=== PATIENT | female | born 1990 | race African-American/Black ===

== ENCOUNTER 2016-06-02 23:54 | Emergency (ER) | payer MEDICAID ==
[~2016-06-02 23:54] MED LIST: ONDA4TAB7 SL; ZOFR4TAB PO
--- NOTE | 2016-06-03 00:57 | PD ---
HPI Chief Complaint Lower abdominal and back pain/vaginal discharge. Date Seen: Jun 03, 2016 Travel History International Travel<30 Days: No Contact w/Intl Traveler<30Days: No Known Affected Area: No History of Present Illness HPI at 23w 0d presents with c/o lower abdominal pain and back pain for several days. Denies contractions/VB/LOF. Reports vaginal discharge- white. Reports recent treatment for BV, just completed antibiotics. Denies urinary symptoms. Para: 4 : 6 History Past Medical History Medical History: Denies Significant Hx Obstetric History Obstetric History 3 PT /1 FT Family History Family History: Negative Social History Alcohol Use: No Tobacco Use: No Substance Abuse: No Allergies-Medications (Allergen,Severity, Reaction): Coded Allergies: Onion (Verified Allergy, Severe, 02/25/16) Spinach (Verified Allergy, Severe, 02/25/16) Home Meds Active Scripts Ondansetron (Zofran)4 Mg Tab4 Mg PO Q6HR PRN (NAUSEA OR VOMITING) #20 TAB Ref 0 Prov:Moreno Bae MD 02/26/16 Reported Medications Ondansetron Odt 4 Mg Tab4 Mg SL Q6HR PRN (Nausea/Vomiting) Ref 0 02/25/16 Physical Exam Narrative GENERAL: Well-nourished, well-developed patient. SKIN: Warm and dry. HEAD: Normocephalic and atraumatic. EYES: No scleral icterus. No injection or drainage. ENT: No nasal drainage noted. Mucous membranes pink. Airway patent. NECK: Supple, trachea midline. No JVD. CARDIOVASCULAR: Regular rate and rhythm without murmurs, gallops, or rubs. RESPIRATORY: Breath sounds equal bilaterally. No accessory muscle use. BREASTS: Bilateral exam showed no masses , no retractions, no nipple discharge. ABDOMEN/GI: Abdomen soft, non-tender, bowel sounds present, no rebound, no guarding Gravid to [-] weeks size Fundal Height: [-] GENITOURINARY: External Genitalia: intact and normal in appearance- vault with scant white discharge, wet prep done BUS glands: [-] Cervix: [-] Dilatation: [0] Effacement: [0] Station: [3] Presentation: [-] Membranes: [intact or ruptured] Uterine Contractions: [-] FHT's: Category: [reassuring for gestational age] Baseline: [130s] Reactive: [-] Variability: [moderate] Decels: [-] EXTREMITIES: No cyanosis or edema. BACK: Nontender without obvious deformity. No CVA tenderness. NEUROLOGICAL: Awake and alert. Motor and sensory grossly within normal limits. Five out of 5 muscle strength in all muscle groups. Normal speech. Data Data Vital Signs Reviewed: Yes Orders Urinalysis - C+S If Indicated (06/03/16 00:48) Wet Prep Profile (06/03/16 00:48) Labs UA- large LE, wet prep- clue cells MDM Interpretation(s) at 23w 0d with abdominal pain/vaginal discharge Plan Will send UA. Wet prep obtained. Rx for Flagyl 500mg bid for 7days. Keep f/u with OB provider as scheduled for this week. All questions answered. Diagnosis Diagnosis: Primary Impression: 23 weeks gestation of Additional Impressions: Abdominal pain during in second trimester Vaginal discharge during in second trimester Bacterial vaginosis Disposition: 01 DISCHARGE HOME Condition: Stable Scripts Metronidazole (Flagyl)500 Mg [id number] Mg PO BID 7 Days Ref 0 Prov:Lexi Ennis MD 06/03/16 Lexi Ennis MD Jun 03, 2016 00:57
[2016-06-03 01:10] LABS: BACTERIA, URINE RARE /hpf; BLOOD, URINE NEG (NEG); GLUCOSE,URINE NEG (NEG); KETONE, URINE NEG (NEG); MUCUS URINE FEW /lpf (OCC); NITRITE,URINE NEG (NEG); PH, URINE 6.5 (5.0-8.5); SQUAMOUS EPITHELIAL CELL URINE <1 /hpf (0-5); URINE COLOR YELLOW (YELLW/STRAW)
[2016-06-03 01:12] LABS: COMMENT (UR) CULT NOT INDICATED; CULTURE IF INDICATED CULT NOT INDICATED
[2016-06-03] MEDS ORDERED: METR-1 PO (01:20)
== END 2016-06-03 01:38 | disposition home or self-care (01) ==
LOC: HOBED 23:54
DX: R10.30 Lower abdominal pain, unspecified (principal); M54.9 Dorsalgia, unspecified; N89.8 Other specified noninflammatory disorders of vagina; O23.592 Infection of other part of genital tract in pregnancy, second trimester; N76.0 Acute vaginitis; B96.89 Other specified bacterial agents as the cause of diseases classified elsewhere; Z3A.23 23 weeks gestation of pregnancy
CPT/HCPCS: 81001; 87210; 99284

== ENCOUNTER 2016-08-04 11:47 | Emergency (ER) | payer MEDICAID ==
[~2016-08-04 11:47] MED LIST changes: +METR-1 PO
[2016-08-04 11:52] VITALS: BP 117/64; PULSE 69; RESP 20; TEMP 98.1; O2SAT 100
--- NOTE | 2016-08-04 12:55 | PD ---
HPI Chief Complaint Abdominal Pain Date Seen: Aug 04, 2016 Travel History International Travel<30 Days: No Contact w/Intl Traveler<30Days: No Known Affected Area: No History of Present Illness HPI Patient is a 26-year-old 115 at 32 weeks gestation that presents to the [facility] be ED with a chief complaints of abdominal pain that has lasted the duration of her . Patient gets her care with an [employer] provider in [place] will give her a prescription for ultrasound and send her here. Patient denies vaginal bleeding or loss of fluid but states that she lost her mucous plug 3 days ago. She had bacterial vaginosis during this and is currently dealing with a yeast infection for which she was given 1 tablet of fluconazole today after failing treatments with a vaginal suppository. Patient states that all her labs have been normal. She has not done the glucose testing yet. Additional symptoms include nausea with vomiting, headache, lightheadedness, chest pain, shortness of breath, dysuria. She denies fever or chills. Last sexual intercourse was months ago. Para: 4 : 7 Miscarriage: 1 : 0 History Past Medical History Medical History: Denies Significant Hx Obstetric History Obstetric History 115 -First was a miscarriage at 2 weeks -Second and third pregnancies were full-term at 39 and 37 weeks respectively -Fourth was late at 34 weeks -Fifth was premature at 33 weeks, PPROM. Baby weighed 4 pounds and 8 ounces Past Surgical History Surgical History: No Previous Surgery Family History Narrative Family History Hypertension in mom's side of the family Social History Alcohol Use: No Tobacco Use: No Substance Abuse: Yes (marijuana - last use was 2 days ago) Allergies-Medications (Allergen,Severity, Reaction): Coded Allergies: Onion (Verified Allergy, Severe, 02/25/16) Spinach (Verified Allergy, Severe, 02/25/16) Home Meds Active Scripts Metronidazole (Flagyl)500 Mg [id number] Mg PO BID 7 Days Ref 0 Prov:Lexi Ennis MD 06/03/16 Ondansetron (Zofran)4 Mg Tab4 Mg PO Q6HR PRN (NAUSEA OR VOMITING) #20 TAB Ref 0 Prov:Moreno Bae MD 02/26/16 Reported Medications Ondansetron Odt 4 Mg Tab4 Mg SL Q6HR PRN (Nausea/Vomiting) Ref 0 02/25/16 Review of Systems General / Constitutional: No: Fever, Chills HENT: Headaches, Lightheadedness Cardiovascular: Chest Pain or Discomfort Respiratory: Short of Breath Gastrointestinal: Nausea, Vomiting, Abdominal Pain Genitourinary: Dysuria Physical Exam Vital Signs Date Time Temp Pulse Resp B/P Pulse Ox O2 Delivery O2 Flow Rate FiO2 08/04/16 11:52 98.1 69 20 117/64 100 Room Air Narrative GENERAL: Well-nourished, well-developed patient. SKIN: Warm and dry. HEAD: Normocephalic and atraumatic. EYES: No scleral icterus. No injection or drainage. ENT: No nasal drainage noted. Mucous membranes pink. Airway patent. NECK: Supple, trachea midline. No JVD. CARDIOVASCULAR: Regular rate and rhythm without murmurs, gallops, or rubs. RESPIRATORY: Breath sounds equal bilaterally. No accessory muscle use. ABDOMEN/GI: Abdomen soft, tender to palpation with guarding, bowel sounds present Gravid to 32 weeks size GENITOURINARY: External Genitalia: intact and normal in appearance Cervix: High and posterior Dilatation: Closed Effacement: 0% Station: -3 Presentation: [-] Membranes: Intact Uterine Contractions: None FHT's: Category: 1 Baseline: 135 Reactive: yes up to 140 Variability: moderate Decels: None EXTREMITIES: No cyanosis or edema. BACK: Nontender without obvious deformity. No CVA tenderness. NEUROLOGICAL: Awake and alert. Motor and sensory grossly within normal limits. Five out of 5 muscle strength in all muscle groups. Normal speech. Data Data Vital Signs Reviewed: Yes Orders Vital Signs (Adult) .ON ADMISSION (08/04/16 12:30) ^ Labor Status (08/04/16 12:30) Urinalysis - C+S If Indicated (08/04/16 12:30) Diet Liquid (08/04/16 Lunch) Fibronectin (08/04/16 12:30) MDM Interpretation(s) 26-year-old 115 presents with abdominal pain. Plan Intrauterine - tracing category 1, reassuring -No contractions on tocometer after monitoring for over 1 hour -Cervical exam: Cervix closed, high and posterior. -Urinalysis - not indicative of infection - fibronectin - negative -Will give a shot of demerol and will ask pt to ask her OB provider to schedule her for ultrasound on Tuesday with MFM consult if available. Diagnosis Diagnosis: Primary Impression: Abdominal pain affecting , antepartum Disposition: DISCHARGE HOME Condition: Stable Eko,Isa Connors MD R1 Aug 04, 2016 12:55
[2016-08-04 12:59] LABS: BLOOD, URINE NEG (NEG); COMMENT (UR) CULT NOT INDICATED; CULTURE IF INDICATED CULT NOT INDICATED; GLUCOSE,URINE NEG (NEG); KETONE, URINE 10 mg/dL (NEG); MUCUS URINE FEW /lpf (OCC); NITRITE,URINE NEG (NEG); SQUAMOUS EPITHELIAL CELL URINE 1 /hpf (0-5); URINE COLOR YELLOW (YELLW/STRAW)
--- NOTE | 2016-08-04 13:55 | PD ---
History of Present Illness Date Seen: Aug 04, 2016 Time Seen: 13:30 History of Present Illness This patient is a 26-year-old black female at 32 weeks tomorrow presents as a referral from her OB doctor in [place] for evaluation of her pain. Patient said pain throughout but it seems to be worsening In the last day or so. Has known yeast infection is been treated for bacterial vaginosis in the past. Her history significant for her last delivery being delivered 33 weeks. heart rates reactive she has no contractions on the monitor. fibronectin done was negative urinalysis negative, cervix is closed and high. Patient's took 1 Diflucan for her yeast infection already she was monitored for over an hours and no contractions and the heart rate tracing is reactive. On exam she has slight tenderness to palpation the abdomen , size equal dates. The patient came in with a prescription from her OB doctor to get an ultrasound done however there is no indication to do an ultrasound at this point this patient pain alone is not that good and indication, however certainly can be scheduled and done for this patient if her ob office will call and set that up in the usual fashion usually on tuesday when maternal medicines here to evaluate and or treat. patient offered im pain shot for relief and if she decides she wants that will be given otherwise she is use tylenol 2 every 4 hours increase her fluid intake and use a heating pad where she hurts on low or so, hot bath and follow up with her ob provider. Jewel Villela II, MD Aug 04, 2016 13:55
[2016-08-04] MEDS ORDERED: MEPERIDINE HCL 50 MG/ML VIAL IM ONE (14:00)
[2016-08-04] MEDS ORDERED: PROCHLORPERAZINE INJ 10 MG/2 ML VIAL IM ONE (14:00)
== END 2016-08-04 15:27 | disposition home or self-care (01) ==
LOC: HOBED 11:47
DX: R10.9 Unspecified abdominal pain (principal); Z3A.32 32 weeks gestation of pregnancy; O26.893 Other specified pregnancy related conditions, third trimester; F12.90 Cannabis use, unspecified, uncomplicated
CPT/HCPCS: 81001; 82731; 96372; 99284; J0780; J2175

== ENCOUNTER 2016-08-11 14:00 | Emergency (ER) | payer MEDICAID ==
[~2016-08-11] VITALS: Ht 157.5 cm; Wt 70.5 kg
[2016-08-11 14:02] VITALS: BP 113/55; PULSE 100; RESP 20; TEMP 98.6; O2SAT 100
--- NOTE | 2016-08-11 15:03 | PD ---
Physical Exam Date Seen by Provider: Aug 11, 2016 Time Seen by Provider: 14:59 Narrative Pt is a 24 year old female presenting with 3 days of SOB, nasal congestion, cough, vomiting. Pt has not taken temp. she reports feeling hot. Pt is 33 weeks . Pt's OB is Dr. Antoine Hurley. Pt reports pleuritic pain. Pt denies any significant PMHx. VSS. Data Data Last Documented VS Vital Signs Date Time Temp Pulse Resp B/P Pulse Ox O2 Delivery O2 Flow Rate FiO2 08/11/16 14:02 98.6 100 20 113/55 100 Room Air MDM Supervised Visit with KAMALA: Frances Staton Aug 11, 2016 15:02
--- NOTE | 2016-08-11 16:03 | PD ---
HPI Chief Complaint: respiratory infection Time Seen by Provider: 15:41 Travel History International Travel<30 days: No Contact w/Intl Traveler<30days: No Traveled to known affect area: No History of Present Illness HPI The patient was seen and examined in the presence of the nurse. This patient is 33 weeks and complaining of runny nose and congestion and sore throat and cough. Severity is moderate. Duration 3 days. No alleviating factors. She denies fever. PFSH Past Medical History Anxiety: No Depression: Yes (Was treated in past with medication) Cancer: No Cardiovascular Problems: No Diabetes: No Diminished Hearing: No Endocrine: No Genitourinary: No Immune Disorder: No Musculoskeletal: No Neurologic: No Psychiatric: Yes (PT-DEPRESSION) Respiratory: Yes (HX BRONCHITIS) Seizures: No Thyroid Disease: No Ulcer: No Tetanus Vaccination: > 5 Years Influenza Vaccination: Yes ?: LMP: SEPTEMBER 24 2016 DUE DATE. 33+5 [id number] Menopausal: No : 6 Para: 5 Miscarriage: 1 Ovarian Cysts: Yes Past Surgical History Other Surgery: No Social History Alcohol Use: No Tobacco Use: No Substance Use: Yes (marijuana, denies other drugs.) Allergies-Medications (Allergen,Severity, Reaction): Coded Allergies: Onion (Verified Allergy, Severe, rash, 08/11/16) Spinach (Verified Allergy, Severe, swelling, 08/11/16) Reported Meds & Prescriptions Reported Meds & Active Scripts Active Active Prescriptions or Reported Medications Unobtainable Review of Systems General / Constitutional: No: Fever Eyes: No: Drainage HENT: Positive: Rhinorrhea, Congestion Respiratory: Positive: Cough Physical Exam Narrative RESPIRATORY: Respiratory effort unlabored, no retractions or use of accessory muscles. Breath sounds are clear and symmetric. NECK: Symmetrical appearance, midline trachea. No mass or crepitus. Thyroid without enlargement, tenderness, or mass. SKIN: Focused skin assessment reveals no rash or ulcers. Skin is warm and dry. Palpation shows no induration or nodules. Throat clear GASTROINTESTINAL: Abdomen soft, non-tender, nondistended. Positive bowel sounds. No hepato-splenomegaly, or palpable masses. No guarding. Gravid uterus is nontender Data Data Last Documented VS Vital Signs Date Time Temp Pulse Resp B/P Pulse Ox O2 Delivery O2 Flow Rate FiO2 08/11/16 15:51 18 99 08/11/16 14:02 98.6 100 113/55 Room Air MDM Medical Decision Making Medical Screen Exam Complete: Yes Emergency Medical Condition: Yes Medical Record Reviewed: Yes Differential Diagnosis Flu syndrome, URI, bronchitis Narrative Course I have reviewed the patient's electronic medical record. Presentation is most consistent with acute viral flu-type syndrome. I don't suspect bacterial cause. I see no indication for antibiotics We discussed chest x-ray but I feel not worth the radiation. She is clear lungs with good oxygen saturations. She should follow-up with her physician, supportive care is discussed. Diagnosis Primary Impression: Acute bronchitis, viral Additional Instructions: The patient was advised to follow up with their physician and return if they worsen. Med/Other Pt SpecificInfo: Other Scripts Unable to Obtain Active Prescriptions or Reported Meds Disposition: 01 DISCHARGE HOME Condition: Stable Pacheco Castillo MD Aug 11, 2016 16:03
[2016-08-11 16:17] VITALS: BP 120/76; TEMP 98
== END 2016-08-11 16:20 | disposition home or self-care (01) ==
LOC: NEPD 14:00
DX: O99.513 Diseases of the respiratory system complicating pregnancy, third trimester (principal); J20.9 Acute bronchitis, unspecified; Z3A.33 33 weeks gestation of pregnancy
CPT/HCPCS: 99283

== ENCOUNTER 2016-10-09 09:33 | Inpatient (IN) | payer MEDICAID ==
[2016-10-09] VITALS (121 sets, daily range): BP systolic 120–165; BP diastolic 69–100; PULSE 45–74; RESP 12–18; TEMP 97.7–98.4; O2SAT 94–100
[2016-10-09] MEDS ORDERED: LACTATED RINGER'S 1000 ML INJ 1,000 ML IV SCH (10:12)
[2016-10-09] MEDS ORDERED: CALCIUM GLUCONATE 10% 1 GM/10 ML VIAL IV PUSH PRN ×2 (10:15→10:30)
[2016-10-09] MEDS ORDERED: ONDANSETRON ODT 4 MG TAB PO PRN (10:15)
[2016-10-09] MEDS ORDERED: MAGNESIUM SULFATE 4 GM PREMIX 100 ML IV ONE (10:15)
[2016-10-09] MEDS ORDERED: SODIUM CHLORIDE 0.9% FLUSH 10 ML FLUSH IV FLUSH PRN (10:15)
[2016-10-09] MEDS ORDERED: oxyCODONE/ACETAMINOPHEN 5 MG/325 MG TAB PO PRN (10:15)
--- NOTE | 2016-10-09 10:27 | PD ---
HPI Chief Complaint Headache and high blood pressure Date Seen: Oct 09, 2016 Time Seen: 10:19 Travel History International Travel<30 Days: No Contact w/Intl Traveler<30Days: No Known Affected Area: No History of Present Illness HPI 26-year-old 7 para 6, 1 week status post spontaneous vaginal delivery at [facility]. She reports that she has developed headache and blurred vision today with a blood pressure recorded in the emergency room of 185/103. She denies any seizure activity, abdominal pain or excessive swelling. She reports having had no blood pressure issues in any of her pregnancies including her most recent. Para: 6 : 7 Last Menstrual Period: Oct 09, 2016 Miscarriage: 1 History Past Medical History Medical History: Denies Significant Hx Obstetric History Obstetric History 6 prior vaginal deliveries without complication. The most recent was one week ago. Past Surgical History Surgical History: No Previous Surgery Family History Family History: Negative Social History Alcohol Use: No Tobacco Use: No Substance Abuse: Yes (marijuana) Allergies-Medications (Allergen,Severity, Reaction): Coded Allergies: Onion (Verified Allergy, Severe, rash, 08/11/16) Spinach (Verified Allergy, Severe, swelling, 08/11/16) Home Meds Unable to Obtain Active Prescriptions or Reported Meds Review of Systems Except as stated in HPI: all other systems reviewed are Neg Physical Exam Narrative GENERAL: Well-nourished, well-developed patient. SKIN: Warm and dry. HEAD: Normocephalic and atraumatic. EYES: No scleral icterus. No injection or drainage. ENT: No nasal drainage noted. Mucous membranes pink. Airway patent. NECK: Supple, trachea midline. No JVD. CARDIOVASCULAR: Heart rate 58 rhythm without murmurs, gallops, or rubs. RESPIRATORY: Breath sounds equal bilaterally. No accessory muscle use. ABDOMEN/GI: Abdomen soft, non-tender, bowel sounds present, no rebound, no guarding Gravid to [14-] weeks size Fundal Height: [-] GENITOURINARY: External Genitalia: intact and normal in appearance BUS glands: [-] Cervix: [-] Dilatation: [-] Effacement: [-] Station: [-] Presentation: [-] Membranes: [intact or ruptured] Uterine Contractions: [-] FHT's: Category: [-] Baseline: [-] Reactive: [-] Variability: [-] Decels: [-] EXTREMITIES: No cyanosis or edema. BACK: Nontender without obvious deformity. No CVA tenderness. NEUROLOGICAL: Awake and alert. Motor and sensory grossly within normal limits. Five out of 5 muscle strength in all muscle groups. Normal speech. Very brisk deep tendon reflexes. Data Data Vital Signs Reviewed: Yes Orders Vital Signs (Adult) .ON ADMISSION (10/09/16 10:06) ^ Labor Status (10/09/16 10:06) Urinalysis - C+S If Indicated (10/09/16 10:06) Cbc No Diff, Includes Plts (10/09/16 10:06) Comprehensive Metabolic Panel (10/09/16 10:06) Place In Observation (10/09/16 ) Code Status (10/09/16 10:12) Vital Signs (Adult) Q5MX4,Q15MX4,Q30MX2,Q1H (10/09/16 10:12) Activity Bed Rest (10/09/16 10:12) Intake + Output Q1H (10/09/16 10:12) Notify Parameters (10/09/16 10:12) ^ Check Deep Tendon Reflexes Q1H (10/09/16 10:12) Diet Liquid (10/09/16 Lunch) Lactated Ringer's 1000 Ml Inj (Lr 1000 M (10/09/16 10:12) Sodium Chloride 0.9% Flush (Ns Flush) (10/09/16 10:15) Sodium Chloride 0.9% Flush (Ns Flush) (10/09/16 21:00) Magnesium Sulfate 40 Gm Premix (Magnesiu (10/09/16 10:12) MDM Medical Record Reviewed: Yes Narrative Course / MDM Assessment: 26-year-old grand multipara 1 week status post vaginal delivery with severe range hypertension and headache concerning for preeclampsia with severe features Plan: CBC, CMP, urinalysis Magnesium for seizure prophylaxis, headache treatment Reviewed with Dr. Caldwell Scripts Unable to Obtain Active Prescriptions or Reported Meds Kevin Dunn MD Oct 09, 2016 10:27
[2016-10-09] MEDS ORDERED: ACETAMIN 325 MG/BUTALBITAL 50 MG/CAFFEINE 40 MG TAB PO PRN (10:30)
[2016-10-09 10:31] LABS: HEMATOCRIT 31.3 % (35.0-46.0); MEAN CELL VOLUME 76.9 FL (80.0-100.0); MEAN CORPUSCULAR HEMOGLOBIN 24.5 PG (27.0-34.0); MEAN CORPUSCULAR HGB CONC 31.9 % (32.0-36.0); PLATELET COUNT 326 TH/MM3 (150-450); RED BLOOD COUNT 4.07 MIL/MM3 (4.00-5.30); RED CELL DISTRIBUTION WIDTH 17.5 % (11.6-17.2); REVIEW FLAG FINAL; WHITE BLOOD COUNT 6.6 TH/MM3 (4.0-11.0)
--- NOTE | 2016-10-09 10:35 | HHI.HP ---
History & Physical H&P HPI HPI Chief Complaint Headache and high blood pressure Date Seen: Oct 09, 2016 Time Seen: 10:19 Travel History International Travel<30 Days: No Contact w/Intl Traveler<30Days: No Known Affected Area: No History of Present Illness HPI 26-year-old 7 para 6, 1 week status post spontaneous vaginal delivery at [facility]. She reports that she has developed headache and blurred vision today with a blood pressure recorded in the emergency room of 185/103. She denies any seizure activity, abdominal pain or excessive swelling. She reports having had no blood pressure issues in any of her pregnancies including her most recent. Para: 6 : 7 Last Menstrual Period: Oct 09, 2016 Miscarriage: 1 History (Limited) History Past Medical History Medical History: Denies Significant Hx Obstetric History Obstetric History 6 prior vaginal deliveries without complication. The most recent was one week ago. Past Surgical History Surgical History: No Previous Surgery Family History Family History: Negative Social History Alcohol Use: No Tobacco Use: No Substance Abuse: Yes (marijuana) Allergies-Medications Allergies-Medications (Allergen,Severity, Reaction): Coded Allergies: Onion (Verified Allergy, Severe, rash, 08/11/16) Spinach (Verified Allergy, Severe, swelling, 08/11/16) Home Meds Unable to Obtain Active Prescriptions or Reported Meds ROS Review of Systems Except as stated in HPI: all other systems reviewed are Neg Physical Exam Physical Exam Narrative GENERAL: Well-nourished, well-developed patient. SKIN: Warm and dry. HEAD: Normocephalic and atraumatic. EYES: No scleral icterus. No injection or drainage. ENT: No nasal drainage noted. Mucous membranes pink. Airway patent. NECK: Supple, trachea midline. No JVD. CARDIOVASCULAR: Heart rate 58 rhythm without murmurs, gallops, or rubs. RESPIRATORY: Breath sounds equal bilaterally. No accessory muscle use. ABDOMEN/GI: Abdomen soft, non-tender, bowel sounds present, no rebound, no guarding Gravid to [14-] weeks size Fundal Height: [-] GENITOURINARY: External Genitalia: intact and normal in appearance BUS glands: [-] Cervix: [-] Dilatation: [-] Effacement: [-] Station: [-] Presentation: [-] Membranes: [intact or ruptured] Uterine Contractions: [-] FHT's: Category: [-] Baseline: [-] Reactive: [-] Variability: [-] Decels: [-] EXTREMITIES: No cyanosis or edema. BACK: Nontender without obvious deformity. No CVA tenderness. NEUROLOGICAL: Awake and alert. Motor and sensory grossly within normal limits. Five out of 5 muscle strength in all muscle groups. Normal speech. Very brisk deep tendon reflexes. Data Data Data Vital Signs Reviewed: Yes Orders Vital Signs (Adult) .ON ADMISSION (10/09/16 10:06) ^ Labor Status (10/09/16 10:06) Urinalysis - C+S If Indicated (10/09/16 10:06) Cbc No Diff, Includes Plts (10/09/16 10:06) Comprehensive Metabolic Panel (10/09/16 10:06) Place In Observation (10/09/16 ) Code Status (10/09/16 10:12) Vital Signs (Adult) Q5MX4,Q15MX4,Q30MX2,Q1H (10/09/16 10:12) Activity Bed Rest (10/09/16 10:12) Intake + Output Q1H (10/09/16 10:12) Notify Parameters (10/09/16 10:12) ^ Check Deep Tendon Reflexes Q1H (10/09/16 10:12) Diet Liquid (10/09/16 Lunch) Lactated Ringer's 1000 Ml Inj (Lr 1000 M (10/09/16 10:12) Sodium Chloride 0.9% Flush (Ns Flush) (10/09/16 10:15) Sodium Chloride 0.9% Flush (Ns Flush) (10/09/16 21:00) Magnesium Sulfate 40 Gm Premix (Magnesiu (10/09/16 10:12) MDM MDM Medical Record Reviewed: Yes Narrative Course / MDM Assessment: 26-year-old grand multipara 1 week status post vaginal delivery with severe range hypertension and headache concerning for preeclampsia with severe features Plan: CBC, CMP, urinalysis Magnesium for seizure prophylaxis, headache treatment Reviewed with Dr. Caldwell Scripts Unable to Obtain Active Prescriptions or Reported Meds Kevin Dunn MD Oct 09, 2016 10:27 Kevin Dunn MD Oct 09, 2016 10:35
[2016-10-09 10:46] LABS: BLOOD, URINE MOD (NEG); COMMENT (UR) CULT NOT INDICATED; CULTURE IF INDICATED CULT NOT INDICATED; GLUCOSE,URINE NEG (NEG); KETONE, URINE NEG (NEG); MUCUS URINE FEW /lpf (OCC); NITRITE,URINE NEG (NEG); PH, URINE 6.5 (5.0-8.5); SQUAMOUS EPITHELIAL CELL URINE 1 /hpf (0-5); URINE COLOR YELLOW (YELLW/STRAW)
[2016-10-09 10:54] LABS: ANION GAP 8 MEQ/L (5-15); AST (GOT) 19 U/L (15-37); BICARBONATE 25.6 MEQ/L (21.0-32.0); BLOOD UREA NITROGEN 18 MG/DL (7-18); CHLORIDE 108 MEQ/L (98-107); GLOMERULAR FILTRATION RATE 90 ML/MIN (>89); POTASSIUM 4.1 MEQ/L (3.5-5.1); SODIUM (NA) 142 MEQ/L (136-145)
[2016-10-09 10:55] LABS: ALT (GPT) 21 U/L (10-53)
[2016-10-09 10:58] LABS: ALKALINE PHOSPHATASE 97 U/L (45-117); TOTAL BILIRUBIN ADULT 0.3 MG/DL (0.2-1.0)
[2016-10-09] MEDS ORDERED: LABETALOL HCL 100 MG/20 ML VIAL IV PUSH PRN (11:15)
[2016-10-09] MEDS ORDERED: NIFEdipine 10 MG CAP PO PRN ×3 (11:30→11:45)
[2016-10-09] MEDS: MAGNESIUM SULFATE 40 GM PREMIX 1,000 ML IV SCH (11:37)
[2016-10-09 16:55] LABS: AMPHETAMINE, URINE NEG (NEG); BARBITURATES, URINE NEG (NEG); COCAINE, URINE NEG (NEG)
[2016-10-09] MEDS ORDERED: SODIUM CHLORIDE 0.9% FLUSH 10 ML FLUSH IV FLUSH SCH (21:00)
[2016-10-10] VITALS (17 sets, daily range): BP systolic 117–139; BP diastolic 76–93; PULSE 50–66; RESP 14–18; TEMP 97.8–98.2
[2016-10-10] MEDS: MAGNESIUM SULFATE 40 GM PREMIX 1,000 ML IV SCH (06:08)
[2016-10-10] MEDS ORDERED: BUTATAB6 PO (10:59)
--- NOTE | 2016-10-10 11:01 | HHI.DCPOC ---
Discharge Care Plan Diagnosis: (1) hypertension (2) Migraine Report Symptoms to Your Doctor -Temperature above 100.5 degrees -Redness, of incision or excessive or foul smelling drainage -Unusual pain or calf pain -Increased vaginal bleeding -Painful or difficulty urinating -Feelings of extreme sadness or anxiety after 2 weeks Goals to Promote Your Health * To prevent worsening of your condition and complications * To maintain your health at the optimal level Directions to Meet Your Goals Take your medications as prescribed Follow your dietary instruction Follow activity as directed Ensure plenty of rest for recovery Drink fluids for hydration Keep your appointments as scheduled Take your immunizations and boosters as scheduled If your symptoms worsen call your PCP, if no PCP go to Urgent Care Center or Emergency Room Smoking is Dangerous to Your Health. Avoid second hand smoke Call the 24-hour crisis hotline for domestic abuse at Divya Caldwell MD Oct 10, 2016 11:01
--- NOTE | 2016-10-10 11:09 | HHI.DS ---
Discharge Summary Admission Date Oct 09, 2016 at 10:37 Discharge Date: Oct 10, 2016 Admitting Diagnosis (1) hypertension Diagnosis: Principal (2) Migraine Diagnosis: Principal CBC/BMP: 10/09/16 1015 10/09/16 1015 Significant Findings Laboratory Tests Test 10/09/16 10:15 Hemoglobin 10.0 GM/DL (11.6-15.3) Hematocrit 31.3 % (35.0-46.0) Mean Corpuscular Volume 76.9 FL (80.0-100.0) Mean Corpuscular Hemoglobin 24.5 PG (27.0-34.0) Mean Corpuscular Hemoglobin 31.9 % Concent (32.0-36.0) Red Cell Distribution Width 17.5 % (11.6-17.2) Urine Protein 100 mg/dL (NEG-TRACE) Urine Occult Blood MOD (NEG) Urine Leukocyte Esterase TRACE (NEG) Urine RBC 4 /hpf (0-3) Urine Mucus FEW /lpf (OCC) Chloride Level 108 MEQ/L (98-107) Calcium Level 8.3 MG/DL (8.5-10.1) Albumin 3.0 GM/DL (3.4-5.0) Urine Cannabinoids Screen POS (NEG) Hospital Course pt was admitted with elevated BPs and severe headaches. she was given magnesium and fioricet. shortly after she was given fioricet her headache resolved and her bps improved without medications. after magnesium bps remained wnl without meds. will d/c home with f/u this week with dr. torres pt admits to family hx of hypertension and personal hx of migraines Pt Condition on Discharge: Stable Discharge Disposition: Discharge Home Discharge Instructions DIET: Follow Instructions for: As Tolerated, No Restrictions, DASH Eating Plan Activities you can perform: Shower Only-No Bath Activities to avoid: Sexual Activity Divya Caldwell MD Oct 10, 2016 11:09
== END 2016-10-10 11:43 | disposition home or self-care (01) | DRG 776 ==
LOC: HOBED 09:33 → H2EA 10:37
PROVIDERS: ADMIT Obstetrics & Gynecology; ATTEND Obstetrics & Gynecology
DX: O16.5 Unspecified maternal hypertension, complicating the puerperium (principal); G43.909 Migraine, unspecified, not intractable, without status migrainosus; Z82.49 Family history of ischemic heart disease and other diseases of the circulatory system
CPT/HCPCS: 80053; 80307; 81001; 85027; 99285; J3475; J7120

== ENCOUNTER 2017-09-01 18:27 | Emergency (ER) | payer MEDICAID ==
[~2017-09-01] VITALS: Ht 157.5 cm; Wt 64.0 kg
[~2017-09-01 18:27] MED LIST changes: +BUTATAB6 PO; -METR-1 PO; -ONDA4TAB7 SL; -ZOFR4TAB PO
[2017-09-01 18:32] VITALS: BP 134/76; PULSE 79; RESP 16; TEMP 98.7; O2SAT 100
--- NOTE | 2017-09-01 18:49 | PD ---
HPI Chief Complaint: Back/ Neck Pain or Injury Time Seen by Provider: 18:50 Travel History International Travel<30 days: No Contact w/Intl Traveler<30days: No Traveled to known affect area: No History of Present Illness HPI 27-year-old female with no significant medical history presents emergency department requesting pain medication for menstrual cramps. Cramping in nature , constant, moderate in severity. Patient states she is on the first day of her menstrual cycle and her cramps are always bad. She states that she was unable to go to work and needs a note for this. Denies any abnormal vaginal discharge or bleeding. No nausea or vomiting. States these are her menstrual cramps and she "does not want to jeopardize her job and needs a note in something for the pain." History Past Medical Histgory Medical History: Denies Significant Hx LMP: 09/01/17 Menopausal: No Hx Cancer: No Social History Alcohol Use: No Tobacco Use: No Allergies-Medications (Allergen,Severity, Reaction): Coded Allergies: onion (Unverified Allergy, Severe, rash, 12/07/16) spinach (Unverified Allergy, Severe, swelling, 12/07/16) Reported Meds & Prescriptions Reported Meds & Active Scripts Active Srmpmfkdzv-Ihsxijwpehpin-Fljpizpm 50-325-40 Mg Tab 2 Tab PO Q6H PRN Review of Systems Except as stated in HPI: all other systems reviewed are Neg Physical Exam Narrative GENERAL: Well-nourished, well-developed female patient in no acute distress SKIN: Focused skin assessment warm/dry. HEAD: Normocephalic. EYES: No scleral icterus. No injection or drainage. NECK: Supple, trachea midline. No JVD or lymphadenopathy. CARDIOVASCULAR: Regular rate and rhythm without murmurs, gallops, or rubs. RESPIRATORY: Breath sounds equal bilaterally. No accessory muscle use. GASTROINTESTINAL: Abdomen soft, non-tender, nondistended. No guarding. No rebound tenderness. MUSCULOSKELETAL: No cyanosis, or edema. BACK: Nontender without obvious deformity. No CVA tenderness. Data Data Last Documented VS Vital Signs Date Time Temp Pulse Resp B/P (MAP) Pulse Ox O2 Delivery O2 Flow Rate FiO2 09/01/17 18:32 98.7 79 16 134/76 (95) 100 MDM Medical Screen Exam Complete: Yes Emergency Medical Condition: No Differential Diagnosis Menstrual cramps Narrative Course 27-year-old female presents emergency department requesting a work note note and pain medication for her menstrual cramps. She is well. She appears nontoxic. Her vital signs are stable. Abdominal exam is benign. At this time there are no urgent or emergent needs medical intervention identified. A medical screening exam was performed: At the time of evaluation the presenting medical condition was determined not to be of an emergent nature. The patient was given the option of receiving additional care, but declined. Patient was given options for additional community resources from which to obtain care. The Patient Has Been advised to seek medical attention for their presenting complaint. The patient has been advised to return to the ER at any time if an emergent condition develops. Primary Impression: Encounter for medical screening examination Condition: Stable Xuan Souza September 01, 2017 18:49
== END 2017-09-01 18:56 | disposition left against medical advice (07) ==
LOC: NEPK 18:27
DX: N94.6 Dysmenorrhea, unspecified (principal)
CPT/HCPCS: 99281